=== PATIENT | female | born 1995 | race Caucasian/White ===

== ENCOUNTER 2016-12-28 21:28 | Emergency (ER) | payer OTHER ==
[2016-12-28 21:38] VITALS: RESP 20
[2016-12-28] MEDS ORDERED: IBUPROFEN 600 MG TAB PO ONE ×2 (21:47→21:50)
[2016-12-28] MEDS ORDERED: SULFAMETHOX/TMP 800/160 MG 1 TAB PO ONE (22:59)
[2016-12-28] MEDS ORDERED: CEPHALEXIN 500 MG CAP PO ONE (22:59)
--- NOTE | 2016-12-28 23:03 | EDPHY ---
H & P Time Seen by Provider: 12/28/16 21:52 HPI/ROS: CHIEF COMPLAINT: Right pinky finger pain HISTORY OF PRESENT ILLNESS: 21-year-old otherwise healthy female presents emergency department complaining of right pinky finger infection x3 days. 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 Yesterday she tried to poke it with a sewing needle and got some pus out of it and then today she had the same. She states pain is throbbing in nature and worsening. She denies fevers or chills, no pain up her hand. Tetanus is up-to-date, she is [id number]. REVIEW OF SYSTEMS: A comprehensive 10 point review of systems is otherwise negative aside from elements mentioned in the history of present illness. Smoking Status: Never smoked Physical Exam: GEN: Awake, alert, oriented, no acute distress RESP: nl resp effort MSK: Full flexion and extension of right pinky finger against resistance at the DIP, PIP and MCP joint, sensation intact to light touch SKIN: Dorsal aspect of right pinky finger just proximal to nail fold with erythema, fluctuance, central area of purulence, no erythema proximal to the DIP joint, no felon, no evidence of flexor or extensor tenosynovitis Constitutional: Initial Vital Signs Temperature (C) 36.5 C 12/28/16 21:37 Heart Rate 72 12/28/16 21:37 Respiratory Rate 20 12/28/16 21:37 Blood Pressure 136/90 H 12/28/16 21:37 O2 Sat (%) 95 12/28/16 21:37 O2 Delivery Mode Room Air Allergies/Adverse Reactions: No Known Allergies Allergy (Unverified 12/28/16 21:35) Home Medications: Medication Instructions Recorded Cephalexin [Keflex] 500 mg PO QID 5 Days 12/28/16 Sulfamethox/Tmp 800/160 mg 1 tab PO BID #14 tab 12/28/16 [Bactrim Ds] MDM/Departure - MDM Procedures: Procedure: Incision and Drainage abscess. The patient's abscess was located on the right pinky finger. Pinky finger was anesthetized with Risks, benefits, alternatives discussed with the patient and consent obtained. The area was prepped and draped in sterile fashion. [The patient received local anesthesia with 1% lidocaine with epinephrine.] The abscess was incised with [a #11 blade] and purulent drainage was expressed. The patient tolerated the procedure well. The procedure was performed by myself. Medications Given: Discontinued Medications Ibuprofen (Motrin) 600 mg PO EDNOW ONE Stop: 12/28/16 21:51 Last Admin: 12/28/16 21:50 Dose: 600 mg ED Course/Re-evaluation: Right pinky finger with abscess to dorsal aspect just proximal to nail fold, no evidence of flexor tenosynovitis, no felon. Abscess was drained with a scalpel , patient is discharged Keflex and Bactrim and instructed to soak 5 times a day. She has been instructed to return for worsening symptoms. - Depart Disposition: Home, Routine, Self-Care Clinical Impression: Cellulitis of right finger Condition: Good Instructions: Incision and Drainage (ED), Cellulitis (ED) Additional Instructions: Take your antibiotics as prescribed, soak your right pinky finger in warm soapy water 5 times a day for 5-10 minutes. Elevate, take 600 mg of ibuprofen every 8 hours with food for pain. Return to the emergency department immediately for any worsening symptoms, spreading of the redness, other questions or concerns. Prescriptions: Sulfamethox/Tmp 800/160 mg [Bactrim Ds] 1 tab PO BID #14 tab Cephalexin [Keflex] 500 mg PO QID 5 Days Referrals: NONE *PRIMARY CARE P,. [Primary Care Provider] - As per Instructions
[2016-12-28 23:24] VITALS: BP 135/75; PULSE 62; TEMP 98.1; O2SAT 97
== END 2016-12-28 23:28 | disposition home or self-care (01) ==
PROC: 0J9J0ZZ Drainage of Right Hand Subcutaneous Tissue and Fascia, Open Approach (ICD-10-PCS; principal; 2016-12-28)
DX: L03.011 Cellulitis of right finger (principal)

== ENCOUNTER 2017-07-09 19:43 | Emergency (ER) | payer BC ==
[2017-07-09 19:50] VITALS: TEMP 98.1
[2017-07-09] MEDS ORDERED: IBUPROFEN 600 MG TAB PO ONE ×2 (19:54→20:00)
[2017-07-09] MEDS ORDERED: OXYCODONE/APAP 5/325 TAB PO ONE (20:07)
--- NOTE | 2017-07-09 20:11 | EDPHY ---
H & P Stated Complaint: right ankle injury HPI/ROS: CHIEF COMPLAINT: Ankle injury HISTORY OF PRESENT ILLNESS: Patient is playing [email or web address] immediately prior to arrival when she landed awkwardly on her right ankle. She describes is rolling of the ankle but does not know what was inversion or eversion. Sudden onset of severe pain in the dorsum of the right midfoot and in the ankle. No pain in the calcaneus. No pain in the proximal fibular masterson. No hip pain. No head strike or loss of conscious. She has no headache, neck pain, chest pain, back pain. No injuries to the arms the left leg. No other associated complaints or modifying factors. Unable to bear weight due to the pain PRIOR ORTHO INJURIES: Multiple mild injuries ESTABLISHED ORTHOPEDIST: None REVIEW OF SYSTEMS: Ten systems reviewed and are negative unless otherwise noted in the HPI EXAMINATION General Appearance: Alert, no distress Cardiovascular: Pulses normal throughout. Symmetric DP and PT pulses 2+ Brisk cap refill Neurological: A&O, sensory symmetric, strength symmetric. No foot drop. Normal proprioception of the great toe and foot Skin: Warm and dry, no rash. No lacerations abrasions or contusions Extremities: Significant tenderness of the right midfoot and both malleoli. No tenderness of the right calcaneus. Range of motion is intact but significantly painful. No tenderness of the proximal fibula. Neurovascular intact distally Psychiatric: Mood and affect normal DIFFERENTIAL DIAGNOSES: Including but not limited to sprain, strain, fracture, dislocation or fracture dislocation MDM: 8:05 p.m. Acute right ankle the injury with severe pain. No deformity. Neurovascular intact. X-ray has been ordered. I have also ordered Percocet 8:30 p.m. Possible nondisplaced fracture of the talus posteriorly or laterally. Difficult to tell on the plain film. Awaiting radiologist's interpretation. 8:50 p.m. I discussed case with radiologist Dr. Parr. He agrees that there may be a subtle, nondisplaced fracture of the talus. No significant abnormality found otherwise. He does not feel that she would benefit from a CT scan at this time. 9:05 p.m. I have re-evaluated the patient and discussed this with her. I will place her in a nonweightbearing boot and crutches. She has strict nonweightbearing precautions until seen by Orthopedics for definitive care. Ice and elevate the extremity. [id number] anti-inflammatories. Percocet for breakthrough pain as needed. Follow up with Dr. Aquino with Orthopedics for definitive care. She is comfortable this plan and discharged home stable condition, neurovascular intact. ED Precautions: Worsening pain. Erythema, edema, cyanosis, pallor, paresthesia or anesthesia. SUPERVISION: This patient was independently evaluated without direct examination by the attending physician. Case was discussed with attending physician. Source: Patient Exam Limitations: No limitations - Personal History LMP (Females 10-55): IUD In Place Current Tetanus Diphtheria and Acellular Pertussis (TDAP): Unsure - Medical/Surgical History Hx Asthma: No Hx Chronic Respiratory Disease: No Hx Diabetes: No Hx Cardiac Disease: No Hx Renal Disease: No Hx Cirrhosis: No Hx Alcoholism: No Hx HIV/AIDS: No Hx Splenectomy or Spleen Trauma: No Other PMH: ADHD, anxiety - Social History Smoking Status: Never smoked Constitutional: Initial Vital Signs Temperature (C) 98.1 F 07/09/17 19:48 Heart Rate 104 H 07/09/17 19:48 Respiratory Rate 22 H 07/09/17 19:48 Blood Pressure 129/76 H 07/09/17 19:48 O2 Sat (%) 99 07/09/17 19:48 O2 Delivery Mode Room Air Allergies/Adverse Reactions: No Known Allergies Allergy (Unverified 12/28/16 21:35) Home Medications: Medication Instructions Recorded Gabapentin 07/09/17 Vyvanse 07/09/17 oxyCODONE HCL/ACETAMINOPHEN 1 each PO Q4-6PRN PRN #19 tablet 07/09/17 [Percocet 5-325 mg Tablet] Medical Decision Making - Diagnostics Imaging Results: Imaging Impressions Ankle X-Ray 07/09/17 19:50 Impression: Lateral soft tissue swelling, with possible lateral talus nondisplaced avulsion fracture near the talofibular ligament. Findings and recommendations discussed with Emergency Department, Yoni Madsen PA-C at 2050 hours, on July 09, 2017. Final report concurs with initial preliminary interpretation.. - Data Points Medications Given: Discontinued Medications Ibuprofen (Motrin) 600 mg PO EDNOW ONE Stop: 07/09/17 20:01 Last Admin: 07/09/17 20:01 Dose: 600 mg Oxycodone/Acetaminophen (Percocet 5/325) 1 tab PO EDNOW ONE Stop: 07/09/17 20:08 Last Admin: 07/09/17 20:12 Dose: 1 tab Oxycodone/Acetaminophen (Percocet 5/325mg Prepack#4) 1 btl TAKEHOME EDNOW ONE Stop: 07/09/17 21:09 Last Admin: 07/09/17 21:23 Dose: 1 btl Departure - Departure Disposition: Home, Routine, Self-Care Clinical Impression: Severe ankle sprain Qualifiers: Encounter type: initial encounter Laterality: right Qualified Code(s): S93.401A - Sprain of unspecified ligament of right ankle, initial encounter Condition: Good Instructions: Oxycodone/Acetaminophen (By mouth), Ankle Sprain (ED), Talar Fracture in Adults (ED) Referrals: NONE *PRIMARY CARE P,. [Primary Care Provider] - As per Instructions Dereck Aquino MD [Medical Doctor] - As per Instructions Prescriptions: oxyCODONE HCL/ACETAMINOPHEN [Percocet 5-325 mg Tablet] 1 each PO Q4-6PRN PRN # 19 tablet PRN Reason: Pain, Breakthrough
[2017-07-09] MEDS ORDERED: OXYCODONE/APAP 5/325MG PREPACK#4 BTL TAKEHOME ONE (21:08)
[2017-07-09 21:30] VITALS: BP 122/51; PULSE 75; RESP 16; O2SAT 95
== END 2017-07-09 21:29 | disposition home or self-care (01) ==
DX: S93.401A Sprain of unspecified ligament of right ankle, initial encounter (principal); X50.9XXA Other and unspecified overexertion or strenuous movements or postures, initial encounter
CPT/HCPCS: L4386

== ENCOUNTER 2017-10-24 21:51 | Emergency (ER) | payer BC ==
[2017-10-24 21:57] VITALS: RESP 18
--- NOTE | 2017-10-24 22:20 | EDPHY ---
H & P Stated Complaint: M-1 HOLD - Personal History LMP (Females 10-55): IUD [address] Current Tetanus/Diphtheria Vaccine: Yes Current Tetanus Diphtheria and Acellular Pertussis (TDAP): Yes - Medical/Surgical History Hx Asthma: No Hx Chronic Respiratory Disease: No Hx Diabetes: No Hx Cardiac Disease: No Hx Renal Disease: No Hx Cirrhosis: No Hx Alcoholism: No Hx HIV/AIDS: No Hx Splenectomy or Spleen Trauma: No Other PMH: ADHD, anxiety - Social History Smoking Status: Never smoked Time Seen by Provider: 10/24/17 21:58 HPI/ROS: CHIEF COMPLAINT: Suicidal ideation HISTORY OF PRESENT ILLNESS: 22-year-old female history of depression, prior history of suicide attempt, arrives via police after her psychiatrist called police this patient was endorsing suicidal ideation with plan to hang herself or overdose. Denies attempt. Denies self-injury. Denies hallucination. Denies complaints of physical pain. Denies homicidal ideation REVIEW OF SYSTEMS: A ten point review of systems was performed and is negative with the exception of the items mentioned in the HPI PAST MEDICAL & SURGICAL HISTORY: Depression SOCIAL HISTORY: denies alcohol or drug use PHYSICAL EXAM (Prior to examination, patient consented to physical exam, hands were washed and my usual and customary physical exam procedures followed) 1) GENERAL: Well-developed, well-nourished, alert and oriented. Appears to be in no acute distress. 2) HEAD: Normocephalic, atraumatic 3) HEENT: Pupils equal, round, reactive to light bilaterally. Sclera anicteric. 4) NECK: Full range of motion, no meningeal signs. 5) LUNGS: Clear auscultation bilaterally, no wheezes, no rhonchi, no retractions. 6) HEART: Regular rate and rhythm, no murmur, no heave, no gallop. 7) ABDOMEN: No guarding, no rebound, no focal tenderness, negative McBurney's, negative Christian's, negative Rovsing's, negative peritoneal sign, 8) MUSCULOSKELETAL: Moving all extremities, no focal areas of tenderness, no obvious trauma. No peripheral edema or discoloration. 9) BACK: No CVA tenderness, no midline vertebral tenderness, no fluctuance, no step-off, no obvious trauma, no visual or palpable abnormality. 10) SKIN: No rash, no petechiae. 11) Psychiatric: Patient is oriented X 3, there is no agitation. DIFFERENTIAL DIAGNOSIS: in no particular order including but not limited to depression, suicidal ideation, homicidal ideation (Young Thomson) Constitutional: Initial Vital Signs Temperature (C) 36.6 C 10/24/17 21:54 Heart Rate 84 10/24/17 21:54 Respiratory Rate 18 10/24/17 21:54 Blood Pressure 138/82 H 10/24/17 21:54 O2 Sat (%) 96 10/24/17 21:54 O2 Delivery Mode Room Air Allergies/Adverse Reactions: No Known Allergies Allergy (Unverified 10/24/17 21:57) Home Medications: Medication Instructions Recorded Vyvanse 07/09/17 Lurasidone HCl [Latuda] 80 mg PO DAILY@0800 10/24/17 lamoTRIgine [LamICTAL] 25 mg PO 10/24/17 Medical Decision Making ED Course/Re-evaluation: Midnight: care turned over to secondary supervising physician Dr Olson with whom I discussed care. (Young Thomson) Other Provider: [id number] care assumed by me from DOMINIQUE Thomson pending mental health evaluation 0310 patient has been evaluated and needs placement. She has been accepted by Dr. Perez at [facility]. I have completed the EMTALA (Silver Olson) - Data Points Laboratory Results: Laboratory Results 10/24/17 22:18 10/24/17 22:18 10/24/17 10/24/17 10/24/17 22:18 22:18 22:18 WBC 7.93 10^3/uL 10^3/uL (3.80-9.50) RBC 4.77 10^6/uL 10^6/uL (4.18-5.33) Hgb 15.1 g/dL g/dL (12.6-16.3) Hct 42.8 % % (38.0-47.0) MCV 89.7 fL fL (81.5-99.8) MCH 31.7 pg pg (27.9-34.1) MCHC 35.3 g/dL g/dL (32.4-36.7) RDW 12.2 % % (11.5-15.2) Plt Count 290 10^3/uL 10^3/uL (150-400) MPV 9.3 fL fL (8.7-11.7) Neut % (Auto) 60.8 % % (39.3-74.2) Lymph % (Auto) 32.0 % % (15.0-45.0) [place] % (Auto) 4.8 % % (4.5-13.0) Eos % (Auto) 1.3 % % (0.6-7.6) Baso % (Auto) 1.0 % % (0.3-1.7) Nucleat RBC Rel Count 0.0 % % (0.0-0.2) Absolute Neuts (auto) 4.82 10^3/uL 10^3/uL (1.70-6.50) Absolute Lymphs (auto) 2.54 10^3/uL 10^3/uL (1.00-3.00) Absolute Monos (auto) 0.38 10^3/uL 10^3/uL (0.30-0.80) Absolute Eos (auto) 0.10 10^3/uL 10^3/uL (0.03-0.40) Absolute Basos (auto) 0.08 10^3/uL 10^3/uL (0.02-0.10) Absolute Nucleated RBC 0.00 10^3/uL 10^3/uL (0-0.01) Immature Gran % 0.1 % % (0.0-1.1) Immature Gran # 0.01 10^3/uL 10^3/uL (0.00-0.10) Sodium 139 mEq/L mEq/L (134-144) Potassium 4.0 mEq/L mEq/L (3.5-5.2) Chloride 101 mEq/L mEq/L (97-110) Carbon Dioxide 20 mEq/l L mEq/l (22-31) Anion Gap 18 mEq/L H mEq/L (8-16) BUN 12 mg/dL mg/dL (7-23) Creatinine 0.8 mg/dL mg/dL (0.6-1.0) Estimated GFR > 60 Glucose 70 mg/dL mg/dL (70-100) Calcium 10.1 mg/dL mg/dL (8.5-10.4) Beta HCG, Qual NEGATIVE Salicylates < 1.0 mg/dL L mg/dL (2.0-20.0) Urine Opiates Screen Acetaminophen < 10 mcg/mL L mcg/mL (10-30) Urine Barbiturates Ur Phencyclidine Scrn Ur Amphetamine Screen U Benzodiazepines Scrn Urine Cocaine Screen U Marijuana (THC) Screen Ethyl Alcohol 105 mg/dL H mg/dL (0-10) 10/24/17 22:05 WBC RBC Hgb Hct MCV MCH MCHC RDW Plt Count MPV Neut % (Auto) Lymph % (Auto) [place] % (Auto) Eos % (Auto) Baso % (Auto) Nucleat RBC Rel Count Absolute Neuts (auto) Absolute Lymphs (auto) Absolute Monos (auto) Absolute Eos (auto) Absolute Basos (auto) Absolute Nucleated RBC Immature Gran % Immature Gran # Sodium Potassium Chloride Carbon Dioxide Anion Gap BUN Creatinine Estimated GFR Glucose Calcium Beta HCG, Qual Salicylates Urine Opiates Screen NEGATIVE (NEGATIVE) Acetaminophen Urine Barbiturates NEGATIVE (NEGATIVE) Ur Phencyclidine Scrn NEGATIVE (NEGATIVE) Ur Amphetamine Screen NON-NEGATIVE H (NEGATIVE) U Benzodiazepines Scrn NEGATIVE (NEGATIVE) Urine Cocaine Screen NEGATIVE (NEGATIVE) U Marijuana (THC) Screen NEGATIVE (NEGATIVE) Ethyl Alcohol Medications Given: Discontinued Medications Lamotrigine (Lamictal) 25 mg PO EDNOW ONE Stop: 10/25/17 01:52 Last Admin: 10/25/17 03:03 Dose: 25 mg Lurasidone HCl (Latuda) 60 mg PO EDNOW ONE Stop: 10/25/17 01:51 Last Admin: 10/25/17 03:02 Dose: 60 mg Zolpidem Tartrate (Ambien) 10 mg PO EDNOW ONE Stop: 10/25/17 01:52 Last Admin: 10/25/17 02:38 Dose: 10 mg Departure - Departure Disposition: Other Psych, Not [place] Clinical Impression: Suicidal ideation Condition: Fair
[2017-10-24 22:23] LABS: % IMMATURE GRANULYOCYTES 0.1 % (0.0-1.1); ABSOLUTE IMMATURE GRANULOCYTES 0.01 10^3/uL (0.00-0.10); ADD DIFF? NO; ADD MORPH? NO; ADD SCAN? NO; ATYPICAL LYMPHOCYTE FLAG 0 (0-99); FRAGMENT RBC FLAG 0 (0-99); HEMATOCRIT 42.8 % (38.0-47.0); HEMOGLOBIN 15.1 g/dL (12.6-16.3); LEFT SHIFT FLG 0 (0-99); LIPEMIA HEMOLYSIS FLAG 90 (0-99); MEAN CELL HEMOGLOBIN 31.7 pg (27.9-34.1); MEAN CELL HEMOGLOBIN CONCENTR. 35.3 g/dL (32.4-36.7); MEAN CELL VOLUME 89.7 fL (81.5-99.8); MEAN PLATELET VOLUME 9.3 fL (8.7-11.7); PLATELET CLUMPS FLAG 10 (0-99); PLATELET COUNT 290 10^3/uL (150-400); RED BLOOD CELL COUNT 4.77 10^6/uL (4.18-5.33); RED CELL DISTRIBUTION WIDTH 12.2 % (11.5-15.2)
[2017-10-24 22:40] LABS: ANION GAP 18 mEq/L (8-16); CALCIUM 10.1 mg/dL (8.5-10.4); CARBON DIOXIDE 20 mEq/l (22-31); CHLORIDE 101 mEq/L (97-110); CREATININE 0.8 mg/dL (0.6-1.0); ETHANOL SERUM 105 mg/dL (0-10); GLOMERULAR FILTRATION RATE > 60; GLUCOSE 70 mg/dL (70-100); SALICYLATE < 1.0 mg/dL (2.0-20.0); SODIUM 139 mEq/L (134-144)
[2017-10-25] MEDS ORDERED: LURASIDONE HCL 20 MG TAB PO ONE (01:50)
[2017-10-25] MEDS ORDERED: lamoTRIgine 25 MG TAB PO ONE (01:51)
[2017-10-25] MEDS ORDERED: ZOLPIDEM TARTRATE 5 MG TAB PO ONE (01:51)
[2017-10-25 03:12] VITALS: BP 129/82; PULSE 88; TEMP 98.2; O2SAT 97
== END 2017-10-25 06:33 ==
DX: R45.851 Suicidal ideations (principal)
CPT/HCPCS: 80305; G0480